=== PATIENT | female | born 1965 | race Asian ===

== ENCOUNTER → 2017-09-03 16:38 | Outpatient (CLI) | payer OTHER, SELFPAY | PROVIDERS: Family Provider Internal Medicine; PCP Family Medicine; Visit Provider Family Medicine | DX: J02.9 Acute pharyngitis, unspecified (principal) | CPT/HCPCS: 87070 ==

== ENCOUNTER 2019-11-17 14:25 | Emergency (ER) | payer OTHER, SELFPAY ==
[2019-11-17] VITALS (7 sets, daily range): BP systolic 158–235; BP diastolic 86–115; PULSE 72–80; RESP 13–22; TEMP 37; O2SAT 99–100; BMI 22.3
[2019-11-17 15:14] LABS: Hematocrit 44.2 % (36-46); Hemoglobin 15.1 g/dL (12.0-16.0); Mean Corpuscular HGB Conc 34.3 % (30-36); Mean Corpuscular Hemoglobin 30.6 PG (26-34); Mean Corpuscular Volume 89.2 fL (80-100); Platelet Count 391 X10^3/uL (150-400); Red Blood Cell Count 4.95 X10^6/uL (4.0-5.2); Red Cell Distribution Width 12.6 % (11.6-14.8); White Blood Cell Count 8.9 X10^3/uL (4.5-11.0)
[2019-11-17 15:28] LABS: Add Manual Diff / Slide Review YES
[2019-11-17] MEDS: METOCLOPRAMIDE 10 MG/2 ML INJ IV (15:33)
[2019-11-17] MEDS: KETOROLAC 60 MG/2 ML VIAL 30 MG IV (15:33)
[2019-11-17] MEDS: diphenhydrAMINE 50 MG/ML VIAL 25 MG IV (15:33)
[2019-11-17 15:36] LABS: Alanine Aminotransferase 30 IU/L (<35); Albumin 4.8 g/dL (3.5-5.0); Alkaline Phosphatase 63 U/L (38-126); Aspartate Aminotransferase 35 IU/L (14-36); BUN Creatinine Ratio 15.9 (6-22); Bilirubin Total 0.3 mg/dL (0.2-1.3); Blood Urea Nitrogen 11 mg/dL (7-17); Calcium 10.2 mg/dL (8.4-10.2); Carbon Dioxide 30 mmol/L (22-32); Chloride 98 mmol/L (98-107); Estimated Glomerular Filt Rate > 60.0 mL/min (>60); Globulin 4.6 g/dL (1.7-4.1); Glucose 146 mg/dL (70-100); HEMOLYSIS < 15 (0-50); Potassium 3.4 mmol/L (3.4-5.1); Sodium 138 mmol/L (137-145); Total Protein 9.4 g/dL (6.3-8.2)
[2019-11-17 15:37] LABS: Creatine Kinase 59 U/L (30-135)
[2019-11-17] MEDS: SODIUM CHLORIDE 0.9% 1,000 ML 150 ML IV (15:43)
[2019-11-17 15:44] LABS: Troponin I < 0.012 ng/mL (0.01-0.034)
[2019-11-17 15:51] LABS: Neutrophils Absolute Manual 4806 /uL (3000-5900); RBC Morphology Normal Morphology; Total Cells Counted 100
[2019-11-17] MEDS: LABETALOL 20 MG/4 ML SYRINGE 10 MG IV (16:00)
--- NOTE | 2019-11-17 16:07 | ED.GENADULT ---
HPI - General Adult <SOLEDAD Palmer - Last Filed: 11/17/19 19:46> General Chief complaint: Hypertension Stated complaint: headache, nausea, elevated BP Time Seen by Provider: 11/17/19 14:41 Source: patient Mode of arrival: Ambulatory Limitations: no limitations History of Present Illness HPI narrative: 54yo female presents with a history of psoriatic arthritis and HTN, currently taking Humira and intermittent hydrochlorothiazide presents to the emergency department for elevated blood pressure, nausea, and headache. Patient states usually blood pressure is elevated around the start of menstruation, which she reports started today. Patient states she took her blood pressure medication this morning but noticed she continued to have a headache that was quite severe in the frontal and bilateral temporal regions. Patient states the headache started gradually and has been increasing in severity. She reports episodes of blurry vision and difficulty focusing with photophobia. Patient denies any double vision, vision loss, chest pain, shortness of breath, dizziness, vomiting, abdominal pain, or diarrhea. She states she does have a history of headache they have not been this severe. Discussed CT with patient initially to rule out intracranial etiology. However, patient requested to try medication 1st prior to CT. Related Data Home Medications Medication Instructions Recorded Confirmed adalimumab [Humira] 40 mg MR #0 12/15/10 11/18/19 Previous Rx's Medication Instructions Recorded tacrolimus [Protopic] 1 bjorn TOPICAL BID #30 gm 01/29/17 chlorthalidone 25 mg tablet 25 mg PO DAILY #30 tab 06/21/18 norgestimate-ethinyl estradiol 1 tab PO Q DAY #3 pac 04/18/19 metoprolol succinate 25 mg 25 mg PO DAILY #30 tab 11/18/19 tablet,extended release 24 hr Allergies Allergy/AdvReac Type Severity Reaction Status Date / Time isoniazid Allergy Severe Hives Verified 11/18/19 15:58 vancomycin Allergy Intermediate Verified 11/18/19 15:58 Review of Systems <SOLEDAD Palmer - Last Filed: 11/17/19 19:46> Review of Systems Narrative: REVIEW OF SYSTEMS: GENERAL: Denies fever or chills. HENT: No head trauma. Reports headaches, see HPI. EYES: No loss of vision, double vision. Reports photophobia and intermittent blurred vision, see HPI. CARDIOVASCULAR: No chest pain. RESPIRATORY: No shortness of breath or cough. GASTROINTESTINAL: No vomiting. Reports nausea, see HPI. INTEGUMENTARY: No rash. NEURO: No numbness or tingling. Patient History <SOLEDAD Palmer - Last Filed: 11/17/19 19:46> Medical History 2 para 2 (Resolved) Normal Papanicolaou smear (Resolved) Psoriasis (Chronic 1991) Psoriatic arthritis (Chronic 1996) Surgical History Anesthesia (Resolved) Status post delivery (Resolved 12/27/03) Family History Brother Hypertension Sister Uterine cancer Father Lung cancer Mother No problems noted. Social History Smoking Status: Never smoker Smoking Status: Never smoker alcohol intake frequency: holidays/special occasions only Substance Use Type: does not use Exam <SOLEDAD Palmer - Last Filed: 11/17/19 19:46> Initial Vital Signs Initial Vital Signs: Vital Signs Temperature 98.6 F 11/17/19 14:43 Pulse Rate 80 11/17/19 14:43 Respiratory Rate 13 11/17/19 14:43 Blood Pressure 235/108 H 11/17/19 14:43 Pulse Oximetry 100 11/17/19 14:43 PHYSICAL EXAMINATION: GENERAL: Well groomed, alert, and cooperative. Answers questions promptly and appropriately. Vital signs noted. HENT: Normocephalic, atraumatic. Ear canals patent. Oral mucosa is pink and moist. EYES: PERRLA, EOMI, conjunctiva pink, sclera white, no periorbital swelling. CHEST: Normal to inspection and without deformities. CARDIOVASCULAR: S1 and S2 sounds normal. Regular rate and rhythm, no murmurs, clicks, or bruits. RESPIRATORY: Normal respiratory rate, trachea midline, airway patent. No stridor, nasal flaring or accessory muscle use. Lungs are clear in all lawrence without wheeze, rhonchi, or crackles. GASTROINTESTINAL: Bowel sounds normoactive. Abdomen is soft and non-tender. No organomegaly. MUSCULOSKELETAL: Normal gait and coordination. Equal tone and mass bilaterally. EXTREMITIES: CMS intact. Moves all extremities. SKIN: Warm, dry, soft, appropriate color for ethnicity. No lesions, rashes, or wounds. NEURO: Alert and Oriented X 3. Good coordination. No ataxia, or sensory deficits, or cognitive issues. Cranial Nerves: II: Visual lawrence grossly intact. III & IV & : EOMIs V: Able to open and close jaw. VII: Facial movements symetrical. Able to close eyelids tightly. VIII: Hearing grossly intact, adequate balance. XI: Patient is able to shrug shoulders. XII: Patient is able to stick out tongue and move it side to side. PSYCH: Appropriate affect and mood. <Gordo Bedoya MD - Last Filed: 11/19/19 07:54> Initial Vital Signs Initial Vital Signs: Vital Signs Temperature 98.6 F 11/17/19 14:43 Pulse Rate 80 11/17/19 14:43 Respiratory Rate 13 11/17/19 14:43 Blood Pressure 235/108 H 11/17/19 14:43 Pulse Oximetry 100 11/17/19 14:43 Course <SOLEDAD Palmer - Last Filed: 11/17/19 19:46> Orders Ordered: Discontinued Medications Diphenhydramine HCl (Benadryl) 25 mg IV NOW ONE Stop: 11/17/19 15:08 Last Admin: 11/17/19 15:33 Dose: 25 mg Documented by: SAÚL Sodium Chloride (Normal Saline 0.9%) 1,000 mls @ 150 mls/hr IV CONT TIMOTHY Last Admin: 11/17/19 15:43 Dose: 150 mls/hr Documented by: SAÚL Ketorolac Tromethamine (Toradol) 30 mg IV NOW ONE Stop: 11/17/19 15:08 Last Admin: 11/17/19 15:45 Dose: Not Given Documented by: SAÚL Labetalol HCl (Trandate) 10 mg IV NOW ONE Stop: 11/17/19 15:57 Last Admin: 11/17/19 16:00 Dose: 10 mg Documented by: SAÚL Labetalol HCl (Trandate) 100 mg PO NOW ONE Stop: 11/17/19 16:44 Last Admin: 11/17/19 17:16 Dose: 100 mg Documented by: SAÚL Metoclopramide HCl (Reglan) 10 mg IV NOW ONE Stop: 11/17/19 15:08 Last Admin: 11/17/19 15:33 Dose: 10 mg Documented by: SAÚL Reevaluation(s) Reevaluation #1: Evaluation after migraine medication, blood pressure remains elevated and headache remains the same. Denied Toradol this time. 1642: Further evaluation after labetalol, blood pressure was seen to be 150s systolic, reported decreased headache. Patient continued to decline Toradol as she states her pain is feeling better. Discussed giving patient a pill of labetalol to help stabilize blood pressure. Patient agrees to plan of care. Consultations Consultation #1: Patient staffed with Dr. Bedoya discussed blood pressure, symptoms, tests, test results, plan of care. Vital Signs Vital signs: Vital Signs - 8 hr 11/17/19 14:43 11/17/19 14:46 11/17/19 15:00 Temperature 98.6 F Pulse Rate 80 80 79 Respiratory Rate 13 21 22 Blood Pressure 235/108 H 235/108 H 204/115 H Pulse Oximetry 100 100 99 11/17/19 16:00 11/17/19 17:16 11/17/19 17:18 Temperature Pulse Rate 79 72 75 Respiratory Rate Blood Pressure 180/100 H 158/87 H 158/87 H Pulse Oximetry 11/17/19 18:24 Temperature Pulse Rate 75 Respiratory Rate 14 Blood Pressure 173/86 H Pulse Oximetry 99 <Gordo Bedoya MD - Last Filed: 11/19/19 07:54> Orders Ordered: Discontinued Medications Diphenhydramine HCl (Benadryl) 25 mg IV NOW ONE Stop: 11/17/19 15:08 Last Admin: 11/17/19 15:33 Dose: 25 mg Documented by: SAÚL Sodium Chloride (Normal Saline 0.9%) 1,000 mls @ 150 mls/hr IV CONT TIMOTHY Last Admin: 11/17/19 15:43 Dose: 150 mls/hr Documented by: SAÚL Ketorolac Tromethamine (Toradol) 30 mg IV NOW ONE Stop: 11/17/19 15:08 Last Admin: 11/17/19 15:45 Dose: Not Given Documented by: SAÚL Labetalol HCl (Trandate) 10 mg IV NOW ONE Stop: 11/17/19 15:57 Last Admin: 11/17/19 16:00 Dose: 10 mg Documented by: SAÚL Labetalol HCl (Trandate) 100 mg PO NOW ONE Stop: 11/17/19 16:44 Last Admin: 11/17/19 17:16 Dose: 100 mg Documented by: SAÚL Metoclopramide HCl (Reglan) 10 mg IV NOW ONE Stop: 11/17/19 15:08 Last Admin: 11/17/19 15:33 Dose: 10 mg Documented by: SAÚL Vital Signs Vital signs: Vital Signs - 8 hr 11/17/19 14:43 11/17/19 14:46 11/17/19 15:00 Temperature 98.6 F Pulse Rate 80 80 79 Respiratory Rate 13 21 22 Blood Pressure 235/108 H 235/108 H 204/115 H Pulse Oximetry 100 100 99 11/17/19 16:00 11/17/19 17:16 11/17/19 17:18 Temperature Pulse Rate 79 72 75 Respiratory Rate Blood Pressure 180/100 H 158/87 H 158/87 H Pulse Oximetry 11/17/19 18:24 Temperature Pulse Rate 75 Respiratory Rate 14 Blood Pressure 173/86 H Pulse Oximetry 99 Medical Decision Making <SOLEDAD Palmer - Last Filed: 11/17/19 19:46> Medical Records Medical records reviewed: Yes I reviewed the patient's medical records. Lab Data Lab results reviewed: Yes I reviewed the patient's lab results. Result diagrams: 11/17/19 15:07 11/17/19 15:07 Labs: Lab Results 11/17/19 11/17/19 11/17/19 Range/Units 15:07 15:07 15:07 WBC 8.9 (4.5-11.0) X10^3/uL RBC 4.95 (4.0-5.2) X10^6/uL Hgb 15.1 (12.0-16.0) g/dL Hct 44.2 (36-46) % MCV 89.2 (80-100) fL MCH 30.6 (26-34) PG MCHC 34.3 (30-36) % RDW 12.6 (11.6-14.8) % Plt Count 391 (150-400) X10^3/uL Neut % (Auto) Screen Printing Cloth Spreader Lymph % (Auto) Screen Printing Cloth Spreader Villalba % (Auto) Screen Printing Cloth Spreader Eos % (Auto) Screen Printing Cloth Spreader Baso % (Auto) Screen Printing Cloth Spreader Neut # (Auto) Screen Printing Cloth Spreader Lymph # (Auto) Screen Printing Cloth Spreader [place]alba # (Auto) Screen Printing Cloth Spreader Eos # (Auto) Screen Printing Cloth Spreader Baso # (Auto) Screen Printing Cloth Spreader Total Counted 100 Seg Neutrophils % 54.0 (38-70) % Lymphocytes % (Manual) 39.0 (25-45) % Monocytes % (Manual) 6.0 (2-11) % Eosinophils % (Manual) 1.0 L (2-4) % Neutrophils # (Manual) 4806 (0204-9296) /uL RBC Morphology Normal morphology Sodium 138 (137-145) mmol/L Potassium 3.4 (3.4-5.1) mmol/L Chloride 98 (98-107) mmol/L Carbon Dioxide 30 (22-32) mmol/L BUN 11 (7-17) mg/dL Creatinine 0.69 (0.52-1.04) mg/dL Estimated GFR > 60.0 (>60) mL/min BUN/Creatinine Ratio 15.9 (6-22) Glucose 146 H (70-100) mg/dL Calcium 10.2 (8.4-10.2) mg/dL Total Bilirubin 0.3 (0.2-1.3) mg/dL AST 35 (14-36) IU/L ALT 30 (<35) IU/L Alkaline Phosphatase 63 (38-126) U/L Total Creatine Kinase 59 (30-135) U/L CK-MB (CK-2) TNP CK-MB (CK-2) Rel Index TNP Troponin I < 0.012 (0.01-0.034) ng/mL Total Protein 9.4 H (6.3-8.2) g/dL Albumin 4.8 (3.5-5.0) g/dL Globulin 4.6 H (1.7-4.1) g/dL Albumin/Globulin Ratio 1.0 (1.0-2.8) ECG Data Interpretation: 1419: Sinus rhythm, rate 74, AK interval 160, QTC 421. No ST elevation or ST depression. No T-wave abnormality. MDM Narrative Medical decision making narrative: 54-year-old female presents emergency department for elevated blood pressure and a headache. No neurological deficits concerning symptoms such as seizures. Patient was initially given medications for headache which did not relieve her head pain. She was then given IV labetalol which significantly decreased her headache and blood pressure. Due to patient's response, patient was given oral labetalol to help manage blood pressure. Patient continued to decline CT scan. Symptoms decreased after medication administration which was reassuring for the absence of intercranial etiology, additionally, patient's neuro exam was intact. Patient was started on labetalol b.i.d. Return precautions given for new or worsening symptoms. She was encouraged to follow-up in the next 1-2 weeks for further evaluation. Patient agreed to plan of care verbalized understanding. <Gordo Bedoya MD - Last Filed: 11/19/19 07:54> Lab Data Labs: Lab Results 11/17/19 11/17/19 11/17/19 Range/Units 15:07 15:07 15:07 WBC 8.9 (4.5-11.0) X10^3/uL RBC 4.95 (4.0-5.2) X10^6/uL Hgb 15.1 (12.0-16.0) g/dL Hct 44.2 (36-46) % MCV 89.2 (80-100) fL MCH 30.6 (26-34) PG MCHC 34.3 (30-36) % RDW 12.6 (11.6-14.8) % Plt Count 391 (150-400) X10^3/uL Neut % (Auto) Screen Printing Cloth Spreader Lymph % (Auto) Screen Printing Cloth Spreader Villalba % (Auto) Screen Printing Cloth Spreader Eos % (Auto) Screen Printing Cloth Spreader Baso % (Auto) Screen Printing Cloth Spreader Neut # (Auto) Screen Printing Cloth Spreader Lymph # (Auto) Screen Printing Cloth Spreader Villalba # (Auto) Screen Printing Cloth Spreader Eos # (Auto) Screen Printing Cloth Spreader Baso # (Auto) Screen Printing Cloth Spreader Total Counted 100 Seg Neutrophils % 54.0 (38-70) % Lymphocytes % (Manual) 39.0 (25-45) % Monocytes % (Manual) 6.0 (2-11) % Eosinophils % (Manual) 1.0 L (2-4) % Neutrophils # (Manual) 4806 (7532-3980) /uL RBC Morphology Normal morphology Sodium 138 (137-145) mmol/L Potassium 3.4 (3.4-5.1) mmol/L Chloride 98 (98-107) mmol/L Carbon Dioxide 30 (22-32) mmol/L BUN 11 (7-17) mg/dL Creatinine 0.69 (0.52-1.04) mg/dL Estimated GFR > 60.0 (>60) mL/min BUN/Creatinine Ratio 15.9 (6-22) Glucose 146 H (70-100) mg/dL Calcium 10.2 (8.4-10.2) mg/dL Total Bilirubin 0.3 (0.2-1.3) mg/dL AST 35 (14-36) IU/L ALT 30 (<35) IU/L Alkaline Phosphatase 63 (38-126) U/L Total Creatine Kinase 59 (30-135) U/L CK-MB (CK-2) TNP CK-MB (CK-2) Rel Index TNP Troponin I < 0.012 (0.01-0.034) ng/mL Total Protein 9.4 H (6.3-8.2) g/dL Albumin 4.8 (3.5-5.0) g/dL Globulin 4.6 H (1.7-4.1) g/dL Albumin/Globulin Ratio 1.0 (1.0-2.8) Discharge Plan Departure Patient Disposition: Home Clinical Impression: Hypertensive urgency Discharge Date/Time: 11/17/19 18:27 Instructions: DI for High Blood Pressure Activity Restrictions/Additional Instructions: Thank you for entrusting me with your care today. As discussed, your laboratory work is non-remarkable, including your kidney function and cardiac enzymes which were normal. Your blood pressure was quite elevated today, you were given labetalol. You were also given Reglan and Benadryl in the emergency department for your headache. I have sent you home with a prescription for labetalol, please take this as directed. I suggest following up with your primary care provider next 1-2 for further evaluation and management of your blood pressure. Continue to monitor and measure blood pressure daily and keep a record. Return emergency department for any new or worsening symptoms such as double vision, vision loss, severe headache, chest pain, uncontrollable vomiting, high fevers, or any other concerns. Prescriptions: No Action adalimumab [Humira] 40 MG/0.8 ML syringe kit 40 mg MR Qty: 0 RF: 0 tacrolimus [Protopic] 0.1 % ointment 1 bjorn Topical BID Qty: 30 RF: 0 norgestimate-ethinyl estradiol [Tri-Linyah] 0.18/0.215/0.25 mg-35 mcg (28) tablet 1 tab PO Q DAY Qty: 3 RF: 4 chlorthalidone 25 mg tablet 25 mg PO DAILY Qty: 30 RF: 1 metoprolol succinate 25 mg tablet extended release 24 hr 25 mg PO DAILY Qty: 30 RF: 1 Referrals: Joya Elliott DO [Primary Care Provider] - <Gordo Bedoya MD - Last Filed: 11/19/19 07:54> Cosign ED Attending Cosignature Attestation: I was immediately available in the department for consultation. This documentation has been reviewed and I agree with assessment and plan. Supervised by Gordo Bedoya MD
[2019-11-17] MEDS: LABETALOL 100 MG TABLET PO (17:16)
== END 2019-11-17 18:27 | disposition home or self-care (01) ==
PROVIDERS: Emergency Provider Nurse Practitioner; Family Provider Internal Medicine; PCP Family Medicine
DX: I16.0 Hypertensive urgency (principal); R51 Headache; R11.0 Nausea; Z79.899 Other long term (current) drug therapy
CPT/HCPCS: 36415; 80053; 82550; 84484; 85025; 93005; 96374; 96375; 99284; J1200; J1885; J2765

== ENCOUNTER → 2019-12-17 07:58 | Outpatient (CLI) | payer OTHER, SELFPAY ==
[2019-12-17 09:24] LABS: BUN Creatinine Ratio 21.9 (6-22); Blood Urea Nitrogen 14 mg/dL (7-17); Carbon Dioxide 30 mmol/L (22-32); Chloride 103 mmol/L (98-107); Cholesterol 147 mg/dL (140-199); Estimated Glomerular Filt Rate > 60.0 mL/min (>60); Glucose 92 mg/dL (70-100); HDL Cholesterol 67 mg/dL (40-60); HEMOLYSIS < 15 (0-50); LDL Cholesterol Calculated 56 mg/dL (<100); Potassium 4.3 mmol/L (3.4-5.1); Sodium 138 mmol/L (137-145); Triglycerides 121 mg/dL (35-150)
== END ==
PROVIDERS: Family Provider Internal Medicine; PCP Family Medicine; Referring Provider Family Medicine; Visit Provider Family Medicine
DX: I10 Essential (primary) hypertension (principal); L40.50 Arthropathic psoriasis, unspecified; N95.1 Menopausal and female climacteric states
CPT/HCPCS: 36415; 80048; 80061; 83001

== ENCOUNTER → 2020-03-20 13:13 | Outpatient (CLI) | payer OTHER, SELFPAY ==
[2020-03-20 13:58] LABS: COVID19 -Nasal RAPID Negative (Negative)
[2020-03-20 14:26] LABS: Influenza A - CEPHEID Flu A NEGATIVE (NEGATIVE); Influenza B - CEPHEID Flu B NEGATIVE (NEGATIVE)
== END ==
PROVIDERS: Family Provider Internal Medicine; PCP Family Medicine; Visit Provider Registered Nurse
DX: R10.9 Unspecified abdominal pain (principal); R50.9 Fever, unspecified; R51.9 Headache, unspecified
CPT/HCPCS: 87502; 87635

== ENCOUNTER → 2020-04-14 10:41 | Outpatient (CLI) | payer OTHER, SELFPAY ==
--- NOTE | 2020-04-14 10:42 | DI.MG.S_ITS ---
BILATERAL DIGITAL SCREENING MAMMOGRAM 3D/2D WITH CAD: 04/14/2020 CLINICAL: Routine screening. Comparison is made to exams dated: 07/17/2016 mammogram and 06/03/2010 mammogram - [facility]. The tissue of both breasts is heterogeneously dense. This may lower the sensitivity of mammography. Current study was also evaluated with a Computer Aided Detection (CAD) system. No significant masses, calcifications, or other findings are seen in either breast. There has been no significant interval change. IMPRESSION: NEGATIVE There is no mammographic evidence of malignancy. A 1 year screening mammogram is recommended. This exam was interpreted at Station ID: [id number]. NOTE: For mammograms, a report in lay terms will be sent to the patient. Approximately 15% of breast malignancies will not be visualized mammographically. In the management of a palpable breast mass, a negative mammogram must not discourage biopsy of a clinically suspicious lesion. Electronically Signed By: Toby prasad/umm:04/16/2020 08:54:15 letter sent: Normal Exam ACR BI-RADS Category 1: Negative [id number]
== END ==
PROVIDERS: Family Provider Internal Medicine; PCP Family Medicine; Referring Provider Family Medicine; Visit Provider Family Medicine
DX: Z12.31 Encounter for screening mammogram for malignant neoplasm of breast (principal)
CPT/HCPCS: 77063; 77067

== ENCOUNTER → 2020-11-16 11:10 | Outpatient (CLI) | payer OTHER, SELFPAY ==
--- NOTE | 2020-11-16 11:10 | DI.US.S_ITS ---
PROCEDURE: US PELVIC COMPLETE INDICATIONS: ABNORMAL BLEEDING TECHNIQUE: Real-time scanning was performed of the pelvic organs, with image documentation. Additional endovaginal scanning was necessary due to incomplete visualization of the adnexal and endometrial structures by transabdominal scanning. COMPARISON: None. FINDINGS: Uterus: Uterus is normal in size at 6.2 x 5.2 x 4.8 cm. The endometrium measures 2 mm in combined thickness. Multiple small uterine fibroids are seen as listed below: An anterior midline intramural and subserosal fibroid measures 2.4 x 1.7 x 2 cm. A right anterior intramural and subserosal fibroid measures 2.1 x 1.8 x 2 cm. An anterior midline intramural and partially submucosal fibroid measures 1.4 x 1.4 x 1.4 cm. Ovaries: The right ovary measures 3.3 x 1.2 x 1.9 cm. The left ovary measures 2.1 x 1.1 x 1.2 cm. A 2.0 x 0.8 x 0.8 cm cystic lesion is seen in the right adnexa separate from the right ovary. Other: No pathologic free abdominal or pelvic fluid. IMPRESSION: 1. Several small uterine fibroids are seen, including a 1.4 cm partially submucosal fibroid. 2. No endometrial thickening. The endometrium measures 2 mm in thickness. 3. A right adnexal cyst measures 2.0 x 0.8 x 0.8 cm. Dictated by: Toby Wing M.D. on 11/16/2020 at 16:01 Approved by: Toby Wing M.D. on 11/16/2020 at 16:14
== END ==
PROVIDERS: Family Provider Internal Medicine; PCP Family Medicine; Referring Provider Family Medicine; Visit Provider Family Medicine
DX: N94.89 Other specified conditions associated with female genital organs and menstrual cycle (principal); D25.0 Submucous leiomyoma of uterus; D25.1 Intramural leiomyoma of uterus; D25.2 Subserosal leiomyoma of uterus
CPT/HCPCS: 76830; 76856

== ENCOUNTER 2021-06-10 07:06 | Day surgery (SDC) | payer OTHER, SELFPAY ==
--- NOTE | 2021-06-10 | PATH_ITS ---
[facility] Accession Number: [id number] . 01 Material submitted: . colon - ASCENDING COLON POLYP . 02 Diagnosis: Ascending Colon Polyp: Tubular adenoma. MRV 06/12/2021 1030 Local . 02 Electronically signed: . Nina Fitzpatrick MD, Pathologist NPI- [id number] . 01 Gross description: . ASCENDING COLON POLYP: Received in formalin is 1 fragment(s) of diaz, soft tissue measuring 0.3 x 0.3 x 0.3 cm submitted entirely in 1 cassette(s) /TIMI 06/11/2021 2248 Local . 02 Pathologist provided ICD-10: K63.5, Z12.11 . 02 CPT . 911656 Specimen Comment: A courtesy copy of this report has been sent to [phone] Specimen Comment: 2055 Performed at: 01 [facility] [address], [place], [place] [id number] MD Ernie Brown MD Phone: [phone] Performed at: 02 [facility] [address] [place], [place] [id number] MD Mae Giraldo MD Phone: [phone]
[2021-06-10 07:35] VITALS: BP 129/78; PULSE 75; RESP 16; TEMP 36.8; O2SAT 99; BMI 23.1
[2021-06-10 07:49] LABS: COVID19 -Nasal RAPID Negative (Negative)
[2021-06-10] MEDS: LACTATED RINGERS 1,000 ML 42 ML IV (07:59)
--- NOTE | 2021-06-10 08:39 | PM.HP.1 ---
History of Present Illness History of Present Illness Date Patient Seen: 06/10/21 Time Patient Seen: 08:39 Chief complaint: SDC Narrative: Indicated for asymptomatic colon cancer screening. Patient History Medical History 2 para 2 Normal Papanicolaou smear Psoriasis (1991) Psoriatic arthritis (1996) Surgical History Anesthesia Status post delivery (12/27/03) Family & Social History Family History Brother Hypertension Sister Uterine cancer Father Lung cancer Mother No problems noted. Social History: household members spouse Tobacco & Substance use: Smoking Status Never smoker alcohol intake frequency holiday/special occasion Substance Use Type does not use Meds Home Medications and Allergies Home Medications Medication Instructions Recorded Confirmed Type adalimumab 40 mg/0.8 mL 40 mg MR #0 12/15/10 05/20/21 History subcutaneous syringe kit (Humira) chlorthalidone 25 mg tablet 25 mg PO DAILY PRN #90 tab 05/20/21 05/20/21 Rx metoprolol succinate 25 mg 12.5 mg PO DAILY #90 tab 05/20/21 06/10/21 Rx tablet,extended release 24 hr Allergies Allergy/AdvReac Type Severity Reaction Status Date / Time isoniazid Allergy Severe Hives Verified 06/10/21 07:17 vancomycin Allergy Intermediate Verified 06/10/21 07:17 Review of Systems Review of Systems ROS: Yes All systems reviewed with the patient and are negative except as otherwise documented Exam Vital Signs (past 8 hours): - 06/10/21 07:35 Temperature 98.2 F Pulse Rate 75 Respiratory Rate 16 Blood Pressure 129/78 Pulse Oximetry 99 Oxygen Delivery Method Room Air Const General: cooperative and comfortable Orientation: alert HENMT Head: normocephalic Ears: external ears normal Nose: external nose normal Face and sinus: normal facial exam Mouth: oral mucosae normal Eyes General: appearance normal, both eyes and all related structures Neck Neck: normal visual inspection Chest Chest: normal inspection of the chest Resp Effort & Inspection: normal respiratory effort Cardio Rate: regular rate GI Inspection: normal to inspection Skin General: no rashes or lesions noted and No jaundice Neuro General: patient alert and moves all extremities Cognition: normal cognition Speech: speech normal Extrem General: no pedal edema Psych Appearance: grossly normal Objective Labs Labs: Laboratory Results - last 24 hr 06/10/21 07:33 SARS-CoV-2 (PCR) Negative Assessment & Plan Assessment & Plan narrative: 55-year-old female indicated for colon cancer screening. Colonoscopy is planned for today. Time Spent With Patient Critical Care time: I spent a total of [] minutes of critical care time on this patient's care today; this time is exclusive of procedural time.
--- NOTE | 2021-06-10 08:40 | PM.PREOP ---
Pre-operative Note COVID-19 COVID-19 status: Negative Result date/Date tested (Pos, Neg/Pending): 06/10/21 Criteria for continued procedure: Possibility delay results in more complex future surgery or treatment Interval Note History & Physical reviewed/Exam performed by Physician: Yes Changes to H&P: No ASA Class (for procedural sedation): II
--- NOTE | 2021-06-10 09:38 | PM.OP.COLON ---
Operative Date/Time/Diagnoses Date of procedure: 06/10/21 Time of procedure: 09:38 Pre-op diagnosis: Colon cancer screening Post-op diagnosis: same Procedure & Clinicians Study performed: Colonoscopy with cold snare polypectomy Same procedure as scheduled: Yes Indications: Colon cancer screening Surgeon: Nghia Whittington Procedure Notes SCOAP/Timeout: Done Procedure in detail: After the risks and benefits were explained, written and verbal informed consent was obtained. The patient was brought into the procedure room and placed into the left lateral decubitus position. Please see nurse inventory control analyst notes for sedation details. Digital rectal examination was accomplished. The scope was introduced into the patient and advanced under direct visualization to the cecum as identified by the appendiceal orifice and ileocecal valve. The scope was slowly withdrawn to carefully examine the mucosa for any defects or lesions. Comprehensive imaging was accomplished throughout the rectum including the dentate line. The colon was decompressed, the scope was then removed from the patient who tolerated the procedure well. Bowel prep adequate Pediatric colonoscope Scope withdrawal time: 10 minutes Sedation minutes: 23 Complications: none Impression: Patient had a fairly lengthy slightly redundant colon. There was a 7 mm sessile polyp near the ileocecal valve in the ascending colon removed with cold snare (we initially had the cautery pad for a hot application but the snare came through the polyp prior to any cautery). There was no sustained significant bleeding. No additional pathology was appreciated throughout. Mild internal hemorrhoids grade 1. Endoscopic diagnosis 1. Grade 1 hemorrhoids 2. Colon polyp Post-procedure Plan for aftercare: 1. Await histopathology 2. Repeat colonoscopy will likely be suggested for 7 years. Disposition: PACU
[2021-06-10 09:40] VITALS: BP 99/65; PULSE 69; RESP 17; TEMP 36.5; O2SAT 100
[2021-06-10 09:45] VITALS: BP 95/64; PULSE 69; RESP 18; O2SAT 98
[2021-06-10 09:50] VITALS: BP 105/62; PULSE 70; RESP 20; O2SAT 99
[2021-06-10 09:55] VITALS: BP 124/74; PULSE 69; RESP 13; TEMP 36.5; O2SAT 100
== END 2021-06-10 10:15 | disposition home or self-care (01) ==
PROVIDERS: Family Provider Internal Medicine; PCP Family Medicine; Referring Provider Internal Medicine Gastroenterology; Visit Provider Internal Medicine Gastroenterology
PROC: 0DJD8ZZ Inspection of Lower Intestinal Tract, Via Natural or Artificial Opening Endoscopic (ICD-10-PCS; CPT 45378; principal; 2021-06-10 09:00)
DX: Z12.11 Encounter for screening for malignant neoplasm of colon (principal); Z20.822 Contact with and (suspected) exposure to COVID-19; K64.0 First degree hemorrhoids; D12.2 Benign neoplasm of ascending colon
CPT/HCPCS: 45385; 87635; C9803

== ENCOUNTER → 2022-02-28 12:38 | Outpatient (CLI) | payer OTHER, SELFPAY ==
[2022-02-28 14:28] LABS: Add Manual Diff / Slide Review NO; Basophils Absolute Auto 100 /uL (0-100); Basophils Percent Auto 0.7 % (0-2); Eosinophils Absolute Auto 0 /uL (0-450); Eosinophils Percent Auto 0.5 % (2-4); Hematocrit 41.4 % (36-46); Lymphocytes Absolute Auto 3300 /uL (1100-4500); Lymphocytes Percent Auto 40.2 % (25-40); Mean Corpuscular HGB Conc 33.7 % (30-36); Mean Corpuscular Hemoglobin 29.6 PG (26-34); Mean Corpuscular Volume 87.8 fL (80-100); Monocytes Absolute Auto 300 /uL (0-900); Monocytes Percent Auto 3.8 % (3-14); Neutrophils Absolute Auto 4500 /uL (1500-7000); Neutrophils Percent Auto 54.8 % (50-75); Platelet Count 394 X10^3/uL (150-400); Red Blood Cell Count 4.72 X10^6/uL (4.0-5.2); Red Cell Distribution Width 12.7 % (11.6-14.8); White Blood Cell Count 8.3 X10^3/uL (4.5-11.0)
[2022-02-28 15:39] LABS: Alanine Aminotransferase 32 IU/L (<35); Albumin 4.3 g/dL (3.5-5.0); Albumin Globulin Ratio 1.1 (1.0-2.8); Alkaline Phosphatase 65 U/L (38-126); Aspartate Aminotransferase 26 IU/L (14-36); BUN Creatinine Ratio 19.3 (6-22); Bilirubin Total 0.4 mg/dL (0.2-1.3); Blood Urea Nitrogen 17 mg/dL (7-17); C-Reactive Protein Quant 0.7 mg/dL (<1.0); Calcium 9.5 mg/dL (8.4-10.2); Carbon Dioxide 34 mmol/L (22-32); Chloride 96 mmol/L (98-107); Estimated Glomerular Filt Rate > 60 mL/min (>60); Glucose 162 mg/dL (70-100); HEMOLYSIS < 15 (0-50); Potassium 3.2 mmol/L (3.4-5.1); Sodium 140 mmol/L (137-145); Total Protein 8.3 g/dL (6.3-8.2)
[2022-02-28 16:11] LABS: Rheumatoid Factor < 8.6 IU/mL (<12.0)
[2022-02-28 16:21] LABS: Erythrocyte Sedimentation Rate 39 MM/HR (0-20)
[2022-03-01 07:56] LABS: Complement C3 122 mg/dL (82-167); HBsAg Screen Negative (Negative); Hepatitis A Antibody IgM Negative (Negative); Hepatitis B Core AB w/Reflex Negative (Negative); Hepatitis B Core AB, IgM Negative (Negative); Hepatitis C Antibody 0.1 s/co ratio (0.0-0.9)
[2022-03-01 20:02] LABS: Hepatitis B Surface Antigen NEGATIVE s/c (NEGATIVE)
[2022-03-01 20:21] LABS: HIV 1 & 2 Ab/Ag 4th Gen Combo NEGATIVE (NEGATIVE); Hep C Virus Ab w/Reflex Quant NEGATIVE s/c (NEGATIVE)
[2022-03-03 14:49] LABS: Hepatitis B Surf Ab Qualitativ Reactive (.)
[2022-03-04 02:43] LABS: Complement Total CH50 > 60 U/mL (>41)
[2022-03-04 13:17] LABS: Cytoplasmic C-ANCA <1:20 titer (Neg:<1:20); Perinuclear P-ANCA <1:20 titer (Neg:<1:20)
[2022-03-04 17:11] LABS: ANA Screen, IFA Positive (.)
[2022-04-08 13:05] LABS: Hepatitis B Core Antibody IgM Negative
== END ==
PROVIDERS: Family Provider Internal Medicine; PCP Family Medicine; Referring Provider Dermatology; Visit Provider Dermatology
DX: L95.9 Vasculitis limited to the skin, unspecified (principal)
CPT/HCPCS: 36415; 80053; 80074; 82595; 85025; 85651; 86038; 86140; 86160; 86162; 86256; 86430; 86704; 86706; 86803; 87340; 87389

== ENCOUNTER → 2022-04-21 08:00 | Outpatient (CLI) | payer OTHER, SELFPAY ==
--- NOTE | 2022-04-21 | DI.MG.S_ITS ---
BILATERAL DIGITAL SCREENING MAMMOGRAM 3D/2D WITH CAD: 04/21/2022 CLINICAL: Routine screening. Comparison is made to exams dated: 04/14/2020 mammogram, 07/17/2016 mammogram, and 06/03/2010 mammogram - [facility]. Both breasts are heterogeneously dense, which may obscure small masses (category c / 51-75% glandular tissue). Current study was also evaluated with a Computer Aided Detection (CAD) system. No significant masses, calcifications, or other findings are seen in either breast. There has been no significant interval change. IMPRESSION: NEGATIVE There is no mammographic evidence of malignancy. A 1 year screening mammogram is recommended. Based on the Tyrer Cuzick model (a risk assessment model) the patient's lifetime risk is 11.6% and her 10 year risk is 3.8%. According to the ACR, ACS, and NCCN guidelines, an annual breast MRI exam along with mammogram is recommended if the patient's lifetime risk is 20% or greater. This exam was interpreted at Station ID: [id number]. NOTE: For mammograms, a report in lay terms will be sent to the patient. Approximately 15% of breast malignancies will not be visualized mammographically. In the management of a palpable breast mass, a negative mammogram must not discourage biopsy of a clinically suspicious lesion. Electronically Signed By: Vickie arroyo/umm:04/21/2022 14:45:16 letter sent: Normal Exam ACR BI-RADS Category 1: Negative [id number]
== END ==
PROVIDERS: Family Provider Internal Medicine; PCP Family Medicine; Referring Provider Family Medicine; Visit Provider Family Medicine
DX: Z12.31 Encounter for screening mammogram for malignant neoplasm of breast (principal)
CPT/HCPCS: 77063; 77067

== ENCOUNTER → 2022-11-10 10:16 | Outpatient (CLI) | payer OTHER, SELFPAY ==
[2022-11-10 11:33] LABS: Hemoglobin A1C% w Est Avg Glu 5.5 % (4.0-6.0)
[2022-11-10 11:44] LABS: BUN Creatinine Ratio 22.6 (6-22); Blood Urea Nitrogen 14 mg/dL (7-17); Calcium 9.9 mg/dL (8.4-10.2); Carbon Dioxide 30 mmol/L (22-32); Chloride 101 mmol/L (98-107); Cholesterol 204 mg/dL (140-199); Estimated Glomerular Filt Rate > 60 mL/min (>60); Glucose 113 mg/dL (70-100); HDL Cholesterol 73 mg/dL (40-60); HEMOLYSIS < 15 (0-50); LDL Cholesterol Calculated 89 mg/dL (<100); Potassium 4.9 mmol/L (3.4-5.1); Sodium 142 mmol/L (137-145); Triglycerides 210 mg/dL (35-150)
[2022-11-10 12:00] LABS: Vitamin D 25 Hydroxy (D3) 32.9 ng/mL (30.0-100.0)
[2022-11-10 12:25] LABS: Appearance Urine UA SL CLOUDY; Bilirubin Urine UA NEGATIVE (NEGATIVE); Color Urine UA YELLOW; Glucose Urine UA NEGATIVE (Negative); Ketones Urine UA NEGATIVE (NEGATIVE); Leukocyte Esterase Urine UA NEGATIVE (NEGATIVE); Nitrite Urine UA NEGATIVE (Negative); Occult Blood Urine UA NEGATIVE (Negative); Protein Urine UA NEGATIVE (Negative); Urobilinogen Urine UA 0.2 E.U./dL (0.2)
[2022-11-10 12:28] LABS: pH Urine UA 7.5 (4.5-8.0)
[2022-11-10 12:33] LABS: Amorphous Sediment Urine 3+; Bacteria Urine None Seen; Culture Indicated Urine Cult Not Indicated; RBC Urine 0-1/HPF (0-5/HPF); Squamous Epithelial Cell Urine None Seen (0-5/HPF); WBC Urine None Seen (0-5/HPF)
[2022-11-10 14:11] LABS: Creatinine Urine Random 62.2 mg/dL; Protein (Total) Urine Random 6 mg/dL (0-12); Protein Creatinine Ratio Urine 0.09 GRAM/24H
== END ==
PROVIDERS: Family Provider Internal Medicine; PCP Internal Medicine; Referring Provider Internal Medicine Rheumatology; Visit Provider Internal Medicine Rheumatology
DX: L40.50 Arthropathic psoriasis, unspecified (principal); L40.9 Psoriasis, unspecified; M31.0 Hypersensitivity angiitis; R76.8 Other specified abnormal immunological findings in serum; D84.9 Immunodeficiency, unspecified; I10 Essential (primary) hypertension; R73.01 Impaired fasting glucose; E55.9 Vitamin D deficiency, unspecified
CPT/HCPCS: 36415; 80048; 80061; 81001; 82306; 82570; 83036; 84156; 86038; 86225; 86235

== ENCOUNTER → 2024-02-25 07:46 | Outpatient (CLI) | payer OTHER, SELFPAY ==
--- NOTE | 2024-02-25 | DI.MG.S_ITS ---
BILATERAL DIGITAL SCREENING MAMMOGRAM 3D/2D WITH CAD: 02/25/2024 CLINICAL: Routine screening. Comparison is made to exams dated: 04/21/2022 mammogram, 04/14/2020 mammogram, and 07/17/2016 mammogram - [facility]. The breasts are heterogeneously dense, which may obscure small masses (category c / 51-75% glandular tissue). Current study was also evaluated with a Computer Aided Detection (CAD) system. No significant masses, calcifications, or other findings are seen in either breast. There has been no significant interval change. IMPRESSION: NEGATIVE There is no mammographic evidence of malignancy. A 1 year screening mammogram is recommended. Based on the Tyrer Cuzick model (a risk assessment model) the patient's lifetime risk is 13.6% and her 10 year risk is 5.0%. According to the ACR, ACS, and NCCN guidelines, an annual breast MRI exam along with mammogram is recommended if the patient's lifetime risk is 20% or greater. This exam was interpreted at Station ID: [id number]. NOTE: For mammograms, a report in lay terms will be sent to the patient. Approximately 15% of breast malignancies will not be visualized mammographically. In the management of a palpable breast mass, a negative mammogram must not discourage biopsy of a clinically suspicious lesion. Electronically Signed By: Pallavi quintero/umm:02/25/2024 09:47:55 letter sent: Normal Exam ACR BI-RADS Category 1: Negative
== END ==
PROVIDERS: Family Provider Internal Medicine; PCP Internal Medicine; Referring Provider Internal Medicine; Visit Provider Internal Medicine
DX: Z12.31 Encounter for screening mammogram for malignant neoplasm of breast (principal); R92.333 Mammographic heterogeneous density, bilateral breasts
CPT/HCPCS: 77063; 77067

== ENCOUNTER → 2024-04-28 14:47 | Outpatient (CLI) | payer OTHER, SELFPAY ==
[2024-05-02 15:15] LABS: Vitamin D 25 Hydroxy (D3) 31.3 ng/mL (30.0-100.0)
[2024-05-02 15:47] LABS: Vitamin B12 566 pg/mL (239-931)
== END ==
PROVIDERS: Family Provider Internal Medicine; PCP Internal Medicine; Visit Provider Internal Medicine
DX: E56.9 Vitamin deficiency, unspecified (principal)
CPT/HCPCS: 82306; 82607

== ENCOUNTER → 2024-05-02 10:03 | Outpatient (CLI) | payer OTHER, SELFPAY ==
[2024-05-02 10:54] LABS: Hematocrit 40.9 % (36-46); Hemoglobin 13.6 g/dL (12.0-16.0); Mean Corpuscular HGB Conc 33.3 % (30-36); Mean Corpuscular Hemoglobin 29.3 PG (26-34); Mean Corpuscular Volume 87.7 fL (80-100); Platelet Count 398 X10^3/uL (150-400); Red Blood Cell Count 4.66 X10^6/uL (4.0-5.2); Red Cell Distribution Width 12.8 % (11.6-14.8); White Blood Cell Count 9.8 X10^3/uL (4.5-11.0)
[2024-05-02 11:15] LABS: Erythrocyte Sedimentation Rate 51 MM/HR (0-20)
[2024-05-02 11:35] LABS: Alanine Aminotransferase 25 IU/L (<35); Albumin 4.3 g/dL (3.5-5.0); Albumin Globulin Ratio 1.1 (1.0-2.8); Alkaline Phosphatase 81 U/L (38-126); Aspartate Aminotransferase 27 IU/L (14-36); BUN Creatinine Ratio 20.8 (6-22); Bilirubin Total 0.4 mg/dL (0.2-1.3); Blood Urea Nitrogen 15 mg/dL (7-17); C-Reactive Protein Quant 1.6 mg/dL (<1.0); Calcium 9.9 mg/dL (8.4-10.2); Carbon Dioxide 26 mmol/L (22-32); Chloride 103 mmol/L (98-107); Creatine Kinase 95 U/L (30-135); Estimated Glomerular Filt Rate > 60 mL/min (>60); Globulin 3.8 g/dL (1.7-4.1); Glucose 114 mg/dL (70-100); HEMOLYSIS < 15 (0-50); Magnesium 1.9 mg/dL (1.6-2.3); Potassium 4.9 mmol/L (3.4-5.1); Sodium 140 mmol/L (137-145); Total Protein 8.1 g/dL (6.3-8.2)
[2024-05-02 11:58] LABS: TSH w/ Reflex to FT4 1.47 uIU/mL (0.47-4.68)
== END ==
PROVIDERS: Family Provider Internal Medicine; PCP Internal Medicine; Referring Provider Internal Medicine; Visit Provider Internal Medicine
DX: M79.10 Myalgia, unspecified site (principal); R60.0 Localized edema; L40.50 Arthropathic psoriasis, unspecified; E83.42 Hypomagnesemia; R73.01 Impaired fasting glucose
CPT/HCPCS: 36415; 80053; 82550; 83036; 83735; 84443; 85027; 85651; 86140

== ENCOUNTER → 2024-05-18 14:17 | Outpatient (CLI) | payer OTHER, SELFPAY ==
[2024-05-18 14:47] LABS: Appearance Urine UA CLEAR; Bilirubin Urine UA NEGATIVE (NEGATIVE); Color Urine UA YELLOW; Glucose Urine UA NEGATIVE (Negative); Ketones Urine UA NEGATIVE (NEGATIVE); Leukocyte Esterase Urine UA NEGATIVE (NEGATIVE); Nitrite Urine UA NEGATIVE (Negative); Occult Blood Urine UA NEGATIVE (Negative); Protein Urine UA NEGATIVE (Negative); Urobilinogen Urine UA 0.2 E.U./dL (0.2)
[2024-05-18 14:49] LABS: Urine Volume 10mL (spun)
[2024-05-18 14:50] LABS: Bacteria Urine None Seen; RBC Urine None Seen (0-5/HPF); Squamous Epithelial Cell Urine None Seen (0-5/HPF); WBC Urine None Seen (0-5/HPF)
[2024-05-18 14:51] LABS: Culture Indicated Urine Cult Not Indicated
[2024-05-18 15:41] LABS: Creatinine Urine Random 82.45 mg/dL; Protein (Total) Urine Random 10 mg/dL (0-12); Protein Creatinine Ratio Urine 0.12 GRAM/24H
[2024-05-18 16:11] LABS: C-Reactive Protein Quant 1.2 mg/dL (<1.0)
[2024-05-18 16:37] LABS: Erythrocyte Sedimentation Rate 49 MM/HR (0-20)
== END ==
LOC: LAB 14:21
PROVIDERS: Family Provider Internal Medicine; PCP Internal Medicine; Referring Provider Internal Medicine Rheumatology; Visit Provider Internal Medicine Rheumatology
DX: L40.50 Arthropathic psoriasis, unspecified (principal); M31.0 Hypersensitivity angiitis; L40.9 Psoriasis, unspecified
CPT/HCPCS: 36415; 81001; 82570; 84156; 85651; 86140

== ENCOUNTER → 2024-08-03 14:10 | Outpatient (CLI) | payer OTHER, SELFPAY ==
[2024-08-03 14:58] LABS: Add Manual Diff / Slide Review NO; Basophils Absolute Auto 100 /uL (0-100); Basophils Percent Auto 0.5 % (0-2); Eosinophils Absolute Auto 100 /uL (0-450); Hematocrit 35.6 % (36-46); Hemoglobin 12.1 g/dL (12.0-16.0); Lymphocytes Absolute Auto 2900 /uL (1100-4500); Lymphocytes Percent Auto 28.7 % (25-40); Mean Corpuscular Hemoglobin 29.4 PG (26-34); Mean Corpuscular Volume 86.4 fL (80-100); Monocytes Absolute Auto 400 /uL (0-900); Monocytes Percent Auto 4.4 % (3-14); Neutrophils Absolute Auto 6700 /uL (1500-7000); Neutrophils Percent Auto 65.4 % (50-75); Platelet Count 382 X10^3/uL (150-400); Red Blood Cell Count 4.11 X10^6/uL (4.0-5.2); Red Cell Distribution Width 12.7 % (11.6-14.8); White Blood Cell Count 10.3 X10^3/uL (4.5-11.0)
[2024-08-03 15:06] LABS: Appearance Urine UA CLEAR; Bilirubin Urine UA NEGATIVE (NEGATIVE); Color Urine UA YELLOW; Glucose Urine UA NEGATIVE (Negative); Ketones Urine UA NEGATIVE (NEGATIVE); Leukocyte Esterase Urine UA NEGATIVE (NEGATIVE); Nitrite Urine UA NEGATIVE (Negative); Occult Blood Urine UA TRACE-INTACT (Negative); Protein Urine UA NEGATIVE (Negative); Specific Gravity Urine UA 1.025 (1.000-1.035); Urobilinogen Urine UA 0.2 E.U./dL (0.2)
[2024-08-03 15:13] LABS: Erythrocyte Sedimentation Rate 73 MM/HR (0-20)
[2024-08-03 15:37] LABS: Alanine Aminotransferase 22 IU/L (<35); Albumin 4.3 g/dL (3.5-5.0); Albumin Globulin Ratio 1.1 (1.0-2.8); Alkaline Phosphatase 86 U/L (38-126); Aspartate Aminotransferase 23 IU/L (14-36); Bilirubin Total 0.5 mg/dL (0.2-1.3); Blood Urea Nitrogen 13 mg/dL (7-17); C-Reactive Protein Quant 2.8 mg/dL (<1.0); Calcium 9.4 mg/dL (8.4-10.2); Carbon Dioxide 26 mmol/L (22-32); Chloride 102 mmol/L (98-107); Creatine Kinase 44 U/L (30-135); Estimated Glomerular Filt Rate > 60 mL/min (>60); Globulin 3.8 g/dL (1.7-4.1); Glucose 165 mg/dL (70-99); HEMOLYSIS < 15 (0-50); Potassium 3.8 mmol/L (3.4-5.1); Rheumatoid Factor 9.3 IU/mL (<12.0); Sodium 138 mmol/L (137-145); Total Protein 8.1 g/dL (6.3-8.2)
[2024-08-03 15:39] LABS: Bacteria Urine None Seen; RBC Urine 1-5/HPF (0-5/HPF); Squamous Epithelial Cell Urine 0-1 /HPF (0-5/HPF); Urine Volume 10mL (spun); WBC Urine 0-1/HPF (0-5/HPF)
[2024-08-03 15:40] LABS: Culture Indicated Urine Cult Not Indicated
[2024-08-03 16:27] LABS: Creatinine Urine Random 98.86 mg/dL; Protein (Total) Urine Random 6 mg/dL (0-12); Protein Creatinine Ratio Urine 0.06 GRAM/24H
[2024-08-05 04:39] LABS: Complement C3 145 mg/dL (82-167)
[2024-08-05 05:09] LABS: Immunoglobulin A 879 mg/dL (87-352)
[2024-08-05 23:39] LABS: Complement Total CH50 > 60 U/mL (>41)
[2024-08-06 19:36] LABS: Angiotensin Converting Enzyme 42 U/L (14-82)
[2024-08-07 14:11] LABS: Antimyeloperoxidase Antibodies <0.2 units (0.0-0.9); Antiproteinase 3 Antibodies <0.2 units (0.0-0.9); Cytoplasmic C-ANCA <1:20 titer (Neg:<1:20); Perinuclear P-ANCA <1:20 titer (Neg:<1:20)
[2024-08-08 15:08] LABS: ANA Screen, IFA Positive (.)
== END ==
PROVIDERS: Family Provider Internal Medicine; PCP Internal Medicine; Referring Provider Internal Medicine Rheumatology; Visit Provider Internal Medicine Rheumatology
DX: L40.50 Arthropathic psoriasis, unspecified (principal); M31.0 Hypersensitivity angiitis
CPT/HCPCS: 36415; 80053; 81001; 82164; 82550; 82570; 82784; 84156; 85025; 85651; 86038; 86140; 86160; 86162; 86256; 86430

== ENCOUNTER → 2024-08-04 13:59 | Outpatient (CLI) | payer OTHER, SELFPAY ==
--- NOTE | 2024-08-04 13:51 | DI.RAD.S_ITS ---
PROCEDURE: XR CHEST 2V INDICATIONS: ARTRITIUS TECHNIQUE: 2 views of the chest were acquired. COMPARISON: None. FINDINGS: Surgical changes and devices: None. Lungs and pleura: Lungs are clear. No pleural effusions or pneumothorax. Mediastinum: Mediastinal contours are normal. Heart size is normal. Bones and chest wall: No suspicious bony abnormalities. Soft tissues appear unremarkable. IMPRESSION: No acute cardiopulmonary abnormality is seen. Dictated by: Gutierrez Graves M.D. on 08/04/2024 at 17:19 Approved by: Gutierrez Graves M.D. on 08/04/2024 at 17:19
== END ==
PROVIDERS: Family Provider Internal Medicine; PCP Internal Medicine; Referring Provider Internal Medicine Rheumatology; Visit Provider Internal Medicine Rheumatology
DX: L40.50 Arthropathic psoriasis, unspecified (principal); M31.0 Hypersensitivity angiitis
CPT/HCPCS: 36415; 71046

== ENCOUNTER 2024-08-24 07:29 | Emergency (ER) | payer OTHER, SELFPAY ==
[2024-08-24] VITALS (11 sets, daily range): BP systolic 134–193; BP diastolic 69–84; PULSE 77–89; RESP 15–20; TEMP 37; O2SAT 95–99; BMI 21.4
--- NOTE | 2024-08-24 07:55 | EKG_ITS ---
[address] [address] [place] [address] Test Date: 2024-08-24 Pat Name: Marguerite Perales Department: [facility] Room: Gender: Female [employer] Field Assistant: DINA : 1965 Requested By: Order Number: [id number] Reading MD: Michael Antonio Measurements Intervals [place] Rate: 81 P: 73 WY: 192 QRS: 43 QRSD: 70 T: 45 QT: 366 QTc: 425 Interpretive Statements Normal sinus rhythm Nonspecific ST abnormality Electronically Signed On 08-26-2024 0:11:25 PDT by Michael Antonio
[2024-08-24 08:07] LABS: Add Manual Diff / Slide Review NO; Basophils Absolute Auto 100 /uL (0-100); Basophils Percent Auto 0.5 % (0-2); Eosinophils Absolute Auto 0 /uL (0-450); Eosinophils Percent Auto 0.2 % (2-4); Hematocrit 41.4 % (36-46); Hemoglobin 13.7 g/dL (12.0-16.0); Lymphocytes Absolute Auto 3500 /uL (1100-4500); Lymphocytes Percent Auto 16.4 % (25-40); Mean Corpuscular Hemoglobin 28.9 PG (26-34); Mean Corpuscular Volume 87.7 fL (80-100); Monocytes Absolute Auto 1100 /uL (0-900); Monocytes Percent Auto 5.2 % (3-14); Neutrophils Absolute Auto 16600 /uL (1500-7000); Neutrophils Percent Auto 77.7 % (50-75); Platelet Count 361 X10^3/uL (150-400); Red Blood Cell Count 4.73 X10^6/uL (4.0-5.2); Red Cell Distribution Width 13.4 % (11.6-14.8); White Blood Cell Count 21.4 X10^3/uL (4.5-11.0)
[2024-08-24] MEDS: ONDANSETRON 4 MG/2 ML INJ IV (08:21)
[2024-08-24 08:23] LABS: Alanine Aminotransferase 19 IU/L (<35); Albumin 4.2 g/dL (3.5-5.0); Albumin Globulin Ratio 1.2 (1.0-2.8); Alkaline Phosphatase 84 U/L (38-126); Aspartate Aminotransferase 20 IU/L (14-36); BUN Creatinine Ratio 21.9 (6-22); Bilirubin Total 0.6 mg/dL (0.2-1.3); Blood Urea Nitrogen 16 mg/dL (7-17); Calcium 9.1 mg/dL (8.4-10.2); Carbon Dioxide 28 mmol/L (22-32); Chloride 102 mmol/L (98-107); Estimated Glomerular Filt Rate > 60 mL/min (>60); Globulin 3.5 g/dL (1.7-4.1); Glucose 166 mg/dL (70-99); HEMOLYSIS < 15 (0-50); Lipase 143 U/L (23-300); Potassium 3.5 mmol/L (3.4-5.1); Sodium 138 mmol/L (137-145); Total Protein 7.7 g/dL (6.3-8.2)
--- NOTE | 2024-08-24 08:29 | ED.ABDPAIN ---
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 Patient states developed epigastric pain about 2 days ago more in the morning had an episode of vomiting in an improved went about their day was able to eat dinner last night, this morning has not eat anything but had epigastric pain again and vomited again this morning. No fevers or chills. No chest pain or pressure. Pain does not radiate to the back or elsewhere. No shortness of breath. Bowel movements has been decreased but did have a small bowel movement that was pellet-like in the last 2 days. Has been been having flatus. No melanotic stools or hematochezia. No flank or back pain. No new swelling of extremities. No new urinary symptoms. Patient notes approximately a month ago had an upper respiratory infection which followed by rash, leg swelling and pain in the extremities was diagnosed with vasculitis suspected IgA and was put on prednisone has currently been taper. Started at 40 mg has tapered down to 20 mg, this is week 3. Patient is on Otezla. Lisinopril and currently prednisone. Past surgical history . Pathologies to INH and vancomycin. No tobacco, no alcohol, no recreational drugs. Patient follows with Dr. Lowe for Rheumatology at [facility]. Primary care is Dr. Valdovinos. Related Data Home Medications ?Medication ?Instructions ?Recorded ?Confirmed apremilast 30 mg tablet (Otezla) 30 mg PO BID Psoriatic arthritis 04/28/24 08/04/24 Previous Rx's ?Medication ?Instructions ?Recorded losartan 25 mg tablet 25 mg PO DAILY #90 tabs 04/28/24 famotidine 40 mg tablet (Pepcid) 40 mg PO BID #30 tabs 08/24/24 ondansetron 4 mg disintegrating 4 mg PO Q6H PRN nausea and 08/24/24 tablet vomiting #20 tabs sucralfate 1 gram tablet (Carafate) 1 g PO QACHS #40 tabs 08/24/24 Allergies Allergy/AdvReac Type Severity Reaction Status Date / Time isoniazid Allergy Severe Hives Verified 08/04/24 16:43 vancomycin Allergy Intermediate Verified 08/04/24 16:43 Review of Systems Review of Systems ROS Unobtainable: All systems reviewed & are unremarkable except as noted in HPI and below Patient History Medical History Leukocytoclastic vasculitis Fever Venous (peripheral) insufficiency Myalgia Generalized anxiety disorder Pulsatile tinnitus of left ear Impaired fasting glucose Right shoulder pain Psoriatic arthritis (1996) 2 para 2 Psoriasis (1991) Normal Papanicolaou smear Surgical History Anesthesia Status post delivery (12/27/03) Family History Brother Hypertension Sister Uterine cancer Father Lung cancer Mother No problems noted. Social History details: [place] refugee household members: spouse Smoking Status: Never smoker Smoking Status: Never smoker alcohol intake frequency: holidays/special occasions only Exam Narrative Exam Narrative: GENERAL: Alert and oriented x three, female in mild distress HEENT: Head normocephalic, atraumatic, EOMI, pupils reactive, face symmetric, moist mucous membranes NECK: Supple, full range of motion CARDIOVASCULAR: Regular rate and rhythm without murmurs, rubs or gallops. RESPIRATORY: Breath sounds equal bilaterally, no wheezes rales or rhonchi. ABDOMEN: Soft, positive for epigastric tenderness. Normoactive bowel sounds all 4 quadrants. No guarding or rebound, rigidity, no mass : No CVA tenderness EXTREMITIES: Normal range of motion, no clubbing or edema. Neurovascularly intact NEUROLOGICAL: Cranial nerves II through XII grossly intact. Moving all extremities SKIN: Warm, dry, no petechiae, no rashes or lesions. Initial Vital Signs Initial Vital Signs: Vital Signs Temperature 98.6 F 08/24/24 07:48 Respiratory Rate 20 08/24/24 07:48 Pulse Oximetry 98 08/24/24 07:48 Oxygen Delivery Method Room Air 08/24/24 07:48 Course Orders Ordered: Discontinued Medications Al Hydrox/Mg Hydrox/Simethicone 20 ml/ Lidocaine HCl 15 ml 0 ml PO NOW ONE Stop: 08/24/24 08:50 Last Admin: 08/24/24 09:14 Dose: 35 ml Documented By: BRANDEN Sodium Chloride (Normal Saline 0.9%) 1,000 mls @ 1,000 mls/hr IV BOLUS ONE Stop: 08/24/24 10:22 Last Infusion: 08/24/24 11:19 Dose: Infused Documented By: Admin: 08/24/24 09:25 Dose: 1,000 mls/hr Documented By: BRANDEN Ketorolac Tromethamine (Ketorolac 30 Mg/Ml Vial) 15 mg IV NOW ONE Stop: 08/24/24 08:26 Last Admin: 08/24/24 09:15 Dose: 15 mg Documented By: BRANDEN Ondansetron HCl (Ondansetron 4 Mg/2 Ml Inj) 4 mg IV NOW PRN PRN Reason: Nausea And Vomiting Last Admin: 08/24/24 08:21 Dose: 4 mg Documented By: GEOFFREY Ondansetron HCl (Ondansetron 4 Mg Odt) 4 mg PO NOW PRN PRN Reason: Nausea And Vomiting Vital Signs Vital signs: Vital Signs - 8 hr 08/24/24 10:30 08/24/24 10:30 08/24/24 11:00 Pulse Rate 83 80 Respiratory Rate 16 Blood Pressure 138/69 Pulse Oximetry 99 99 08/24/24 11:00 08/24/24 11:24 08/24/24 11:24 Pulse Rate 84 Respiratory Rate Blood Pressure 139/74 134/76 Pulse Oximetry 99 MDM - Abdominal Pain Lab Data 08/24/24 07:55 08/24/24 07:55 Labs: Lab Results 08/24/24 Range/Units 07:55 WBC 21.4 H (4.5-11.0) X10^3/uL RBC 4.73 (4.0-5.2) X10^6/uL Hgb 13.7 (12.0-16.0) g/dL Hct 41.4 (36-46) % MCV 87.7 (80-100) fL MCH 28.9 (26-34) PG MCHC 33.0 (30-36) % RDW 13.4 (11.6-14.8) % Plt Count 361 (150-400) X10^3/uL Neut % (Auto) 77.7 H (50-75) % Lymph % (Auto) 16.4 L (25-40) % [place] % (Auto) 5.2 (3-14) % Eos % (Auto) 0.2 L (2-4) % Baso % (Auto) 0.5 (0-2) % Neut # (Auto) 20785 H (4264-0206) /uL Lymph # (Auto) 3500 (9977-1147) /uL [place] # (Auto) 1100 H (0-900) /uL Eos # (Auto) 0 (0-450) /uL Baso # (Auto) 100 (0-100) /uL ESR 25 H (0-20) MM/HR Sodium 138 (137-145) mmol/L Potassium 3.5 (3.4-5.1) mmol/L Chloride 102 (98-107) mmol/L Carbon Dioxide 28 (22-32) mmol/L BUN 16 (7-17) mg/dL Creatinine 0.73 (0.52-1.04) mg/dL Estimated GFR > 60 (>60) mL/min BUN/Creatinine Ratio 21.9 (6-22) Glucose 166 H (70-99) mg/dL Calcium 9.1 (8.4-10.2) mg/dL Total Bilirubin 0.6 (0.2-1.3) mg/dL AST 20 (14-36) IU/L ALT 19 (<35) IU/L Alkaline Phosphatase 84 (38-126) U/L C-Reactive Protein 2.6 H (<1.0) mg/dL Total Protein 7.7 (6.3-8.2) g/dL Albumin 4.2 (3.5-5.0) g/dL Globulin 3.5 (1.7-4.1) g/dL Albumin/Globulin Ratio 1.2 (1.0-2.8) Lipase 143 (23-300) U/L ECG Data Attestation: I personally reviewed and interpreted this ECG as follows: Interpretation: Sinus rhythm rate 81 [place] 192 QRS is 70 QTC of 425, no acute ST elevation depression noted. No prior for comparison. MDM Narrative Medical decision making narrative: Labs show white count of 21 hemoglobin of 13.7 platelets are 361, chemistries are appropriate BUN and creatinine normal glucose is 166, bilirubin, AST ALT and alk-phos are normal lipase is 143, ESR is 25 CRP 2.6. Patient notes her last 1 several weeks ago was 2.4 EKG shows sinus rhythm nonspecific change CT abdomen pelvis shows no acute change Patient received fluids, Toradol, GI cocktail, Zofran Discussed findings possibility of ulcer particularly with recent steroid usage, she was had history of vasculitis typically has not had abdominal pain. 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 Reviewed all the findings patient is feeling much better. Patient follows with Dr Lowe, with rheumatology. We will reach out to review recommendations. Spoke with Dr. Swanson, rheumatology at [facility]. Patient reviewed could be potentially for her IgA/[place] Schonlein purpura. They are agreeable to Pepcid and Carafate for the short term to see if this is improvement patient is to follow up. Discharge Plan Departure Patient Disposition: Home Clinical Impression: Epigastric abdominal pain Instructions: DI for Epigastric Pain Activity Restrictions/Additional Instructions: Follow up with your your rheumatology team. Did review your findings from today with them. Prescription for Pepcid 40 mg daily you can increase this to 40 mg twice daily if needed, Carafate was sent to [facility]. There is also a prescription for Zofran included. Please return for fevers, severe pain, persistent vomiting, black or bloody stools, blood in your emesis, new swelling of your extremities, new rash changes, new chest pain or shortness of breath or other new or concerning changes. Prescriptions: New sucralfate [Carafate] 1 gram tablet 1 g PO QACHS Qty: 40 0RF famotidine [Pepcid] 40 mg tablet 40 mg PO BID Qty: 30 0RF ondansetron 4 mg tablet,disintegrating 4 mg PO Q6H PRN (Reason: nausea and vomiting) Qty: 20 0RF No Action Otezla 30 mg tablet 30 mg PO BID losartan 25 mg tablet 25 mg PO DAILY Qty: 90 3RF Referrals: Brad Valdovinos MD [Primary Care Provider, Internal Medicine] Stand Alone Forms: Patient Portal/API
[2024-08-24 08:33] LABS: C-Reactive Protein Quant 2.6 mg/dL (<1.0)
--- NOTE | 2024-08-24 08:49 | DI.CT.S_ITS ---
PROCEDURE: CT ABDOMEN PELVIS W CON INDICATIONS: epigastric pain, hx iga vasculitis, on prednisone, n/v TECHNIQUE: After the administration of intravenous contrast, axial sections acquired from the lung bases to the pubic symphysis. Coronal and sagittal reformats were performed. For radiation dose reduction, the following was used: automated exposure control, adjustment of mA and/or kV according to patient size. COMPARISON: None. FINDINGS: Image quality: Diagnostic. Lower Chest: No significant findings. ABDOMEN: Liver: No solid mass. Hepatic cysts. Gallbladder: No radiopaque gallstones or wall thickening. Biliary ducts: No biliary dilation. Pancreas: No ductal dilation. Spleen: Size is within normal limits. Adrenal Glands: No adrenal nodules. Kidneys and Ureters: No hydronephrosis. No solid mass. No complex renal cystic lesion which requires follow up. Stomach and Bowel: Normal colonic caliber, without significant wall thickening. The appendix is normal. Peritoneum: No abnormal intraperitoneal fluid. No free air. Ventral Wall: No significant ventral hernia. Abdominal Nodes: No retroperitoneal or mesenteric adenopathy by size criteria. Vessels: Aorta and inferior vena cava are normal in size. PELVIS: Pelvic Organs: Uterine fibroids. Bladder: No bladder wall thickening, accounting for underdistention. Pelvic Nodes: No enlarged lymph nodes. Miscellaneous: No inguinal hernias are seen. Bones: No aggressive osseous abnormality. IMPRESSION: No acute disease process. Dictated by: Ashleigh Palmer MD, PhD on 08/24/2024 at 9:33 Approved by: Ashleigh Palmer MD, PhD on 08/24/2024 at 9:39
[2024-08-24 08:56] LABS: Erythrocyte Sedimentation Rate 25 MM/HR (0-20)
[2024-08-24] MEDS: MAG HYDROX/ALUMINUM/SIMETH SUS 20 ML, LIDOCAINE VISCOUS 2% 15 ML PO (09:14)
[2024-08-24] MEDS: KETOROLAC 30 MG/ML VIAL 15 MG IV (09:15)
[2024-08-24] MEDS: SODIUM CHLORIDE 0.9% 1,000 ML 1000 ML IV (09:25)
== END 2024-08-24 11:31 | disposition home or self-care (01) ==
PROVIDERS: Emergency Provider Emergency Medicine; Family Provider Internal Medicine; PCP Internal Medicine
DX: R10.13 Epigastric pain (principal); R11.2 Nausea with vomiting, unspecified; R19.7 Diarrhea, unspecified
CPT/HCPCS: 36415; 74177; 80053; 83690; 85025; 85651; 86140; 93005; 96361; 96374; 96375; 99284; J1885; J2405; Q9967

== ENCOUNTER 2024-09-17 09:27 | Emergency (ER) | payer OTHER, SELFPAY ==
[2024-09-17 09:35] VITALS: BP 178/85; PULSE 86; RESP 16; TEMP 36.5; O2SAT 98; BMI 22.4
--- NOTE | 2024-09-17 09:55 | ED_ITS ---
HPI - Skin/Abscess/Foreign Bdy General Chief complaint: Skin/Abscess/Foreign Body Stated complaint: LT index finger injury Time Seen by Provider: 09/17/24 09:35 History of Present Illness HPI narrative: 59-year-old female history of hypertension, psoriatic arthritis with worsening rash legs and arm with concerns from the bioinformatics research technician that this could be leukocytoclastic vasculitis but most likely idiopathic and will go away on its own recently seen by bioinformatics research technician also with biopsy taken with possible working diagnosis of lupus but waiting for results come back presents today with left index finger swelling increasing redness pain with range of motion despite taking ibuprofen with and increasing her prednisone dose with no significant relief of her symptoms. Other than what is stated 14 point review of system is negative. Related Data Home Medications ?Medication ?Instructions ?Recorded ?Confirmed apremilast 30 mg tablet (Otezla) 30 mg PO BID Psoriati c arthritis 04/28/24 08/04/24 Previous Rx's ?Medication ?Instructions ?Recorded losartan 25 mg tablet 25 mg PO DAILY #90 tabs 04/16 06/07 famotidine 40 mg tablet (Pepcid) 40 mg PO BID #30 tabs 08/24/24 ondansetron 4 mg disintegrating 4 mg PO Q6H PRN nausea and 08/24/24 tablet vomiting #20 tabs sucralfate 1 gram tablet (Carafate) 1 g PO QACHS #40 t abs 08/24/24 metformin 500 mg tablet 500 mg PO BID #180 tabs 06/07 sulfamethoxazole 800 1 tab PO BID #14 tabs mg-trimethoprim 160 mg tablet (Bactrim DS) Allergies Allergy/AdvReac Type Severity Reaction Status Date / Time isoniazid Allergy Severe Hives Verified 09/17/24 09:38 vancomycin Allergy Intermediate Verified 09/17/24 09:38 Review of Systems Review of Systems ROS Unobtainable: All systems reviewed & are unremarkable except as noted in HPI and below Patient History Medical History Leukocytoclastic vasculitis Fever Venous (peripheral) insufficiency Myalgia Generalized anxiety disorder Pulsatile tinnitus of left ear Impaired fasting glucose Right shoulder pain Psoriatic arthritis (1996) 2 para 2 Psoriasis (1991) Normal Papanicolaou smear Surgical History Anesthesia Status post delivery (12/27/03) Family History Brother Hypertension Sister Uterine cancer Father Lung cancer Mother No problems noted. Social History details: [place] refugee household members: spouse alcohol intake frequency: holidays/special occasions only Exam Narrative Exam Narrative: GENERAL: [59] year old patient appears stated age. Well-developed patient, in mild distress. HEAD: Atraumatic. Normocephalic. EYES: Pupils equal round and reactive. Extraocular motions intact. No scleral icterus. No injection or drainage. EXTREMITIES: No edema or joint tenderness. L index finger PIP swelling with dec ROM in flexion and extension with multiple erythematous hemorrhagic looking macules noted on the dorsal areas of hand BACK: Nontender without deformity or crepitance. No flank tenderness. NEURO: AOx3. SKIN: No rash or erythema of visible areas Initial Vital Signs Initial Vital Signs: Vital Signs Temperature 97.7 F 09/17/24 09:35 Pulse Rate 86 09/17/24 09:35 Respiratory Rate 16 09/17/24 09:35 Blood Pressure 178/85 H 09/17/24 09:35 Pulse Oximetry 98 09/17/24 09:35 Oxygen Delivery Method Room Air 09/17/24 09:35 Course Orders Ordered: ED Orders 09/17/24 09:54 CT UE LT w con Stat 09/17/24 10:14 CBC Auto Diff [Complete Blood Count AUTO DIFF] Stat CMP [Comprehensive Metabolic Panel] Stat CRP [C-Reactive Protein Quant] Stat Erythrocyte Sedimentation Rate Stat Vital Signs Vital signs: Vital Signs - 8 hr 09/17/24 09:35 09/17/24 11:23 Temperature 97.7 F Pulse Rate 86 85 Respiratory Rate 16 18 Blood Pressure 178/85 H 142/78 H Pulse Oximetry 98 97 Oxygen Delivery Method Room Air MDM - Skin/Abscess/Foreign Bdy Lab Data 09/17/24 10:14 09/17/24 10:14 Labs: Lab Results 09/17/24 Range/Units 10:14 WBC 12.6 H (4.5-11.0) X10^3/uL RBC 4.47 (4.0-5.2) X10^6/uL Hgb 13.1 (12.0-16.0) g/dL Hct 39.3 (36-46) % MCV 87.9 (80-100) fL MCH 29.2 (26-34) PG MCHC 33.2 (30-36) % RDW 13.5 (11.6-14.8) % Plt Count 487 H (150-400) X10^3/uL Neut % (Auto) 62.2 (50-75) % Lymph % (Auto) 33.8 (25-40) % [place] % (Auto) 2.9 L (3-14) % Eos % (Auto) 0.4 L (2-4) % Baso % (Auto) 0.7 (0-2) % Neut # (Auto) 7800 H (8490-1454) /uL Lymph # (Auto) 4300 (4773-6279) /uL [place] # (Auto) 400 (0-900) /uL Eos # (Auto) 100 (0-450) /uL Baso # (Auto) 100 (0-100) /uL ESR 52 H (0-20) MM/HR Sodium 139 (137-145) mmol/L Potassium 3.6 (3.4-5.1) mmol/L Chloride 102 (98-107) mmol/L Carbon Dioxide 29 (22-32) mmol/L BUN 19 H (7-17) mg/dL Creatinine 0.70 (0.52-1.04) mg/dL Estimated GFR > 60 (>60) mL/min BUN/Creatinine Ratio 27.1 H (6-22) Glucose 170 H (70-99) mg/dL Calcium 9.8 (8.4-10.2) mg/dL Total Bilirubin 0.4 (0.2-1.3) mg/dL AST 26 (14-36) IU/L ALT 27 (<35) IU/L Alkaline Phosphatase 74 (38-126) U/L C-Reactive Protein 3.2 H (<1.0) mg/dL Total Protein 8.3 H (6.3-8.2) g/dL Albumin 4.4 (3.5-5.0) g/dL Globulin 3.9 (1.7-4.1) g/dL Albumin/Globulin Ratio 1.1 (1.0-2.8) Imaging Data Extremity x-ray #1: Radiologist's Impression: [address] [address] [address] Scan Report Signed Patient: Marguerite Perales MR#: [id number] : 1965 Acct:[id number] Age/Sex: 59 / F Date of Service: 09/17/24 Loc: ED Accession Number: [id number] Procedure: CT UE LT w con Ordering Provider: Jak Mcdermott D.O. PROCEDURE: CT UE LT W CON INDICATIONS: L index finger abscess / osteomyelitis? TECHNIQUE: After the administration of intravenous contrast, 3 mm axial sections acquired of the hand , with coronal and sagittal reformats. COMPARISON: None. FINDINGS: Image quality: Diagnostic Bones: Mild scattered arthrosis. No definite osseous erosions. No acute displaced fracture or dislocation. Soft tissues: Soft tissue edema is seen at the 2nd digit, without a drainable fluid collection. IMPRESSION: Suspected soft tissue edema, without drainable rim enhancing collection or osseous erosion. MRI is more sensitive if clinically necessary. Dictated by: Patric Cardona M.D. on 09/17/2024 at 9:48 Approved by: Patric Cardona M.D. on 09/17/2024 at 9:51 MDM Narrative Medical decision making narrative: Vital signs nurse triage note medication list previous ER visits and all imaging studies reviewed. Suspected soft tissue edema without drainable rim enhancing collection or osseous erosion. There is only mild edema around the 2nd digit flexor tendon without large tenosynovitis no definite hematoma. Differential diagnosis includes cellulitis flexor tenosynovitis osteomyelitis MRSA abscess. DC home on Bactrim rx. Discharge Plan Departure Patient Disposition: Home Clinical Impression: Cellulitis of finger Qualifiers: Laterality: left Qualified Code(s): L03.012 - Cellulitis of left finger Instructions: DI for Cellulitis -- Adult Activity Restrictions/Additional Instructions: Return with new or worsening symptoms. Take your medicines as directed. Follow up with PCP and/or specialist at your next scheduled appointment. Prescriptions: New sulfamethoxazole-trimethoprim [Bactrim DS] 800-160 mg tablet 1 tab PO BID Qty: 14 0RF No Action metformin 500 mg tablet 500 mg PO BID Qty: 180 3RF Otezla 30 mg tablet 30 mg PO BID losartan 25 mg tablet 25 mg PO DAILY Qty: 90 3RF sucralfate [Carafate] 1 gram tablet 1 g PO QACHS Qty: 40 0RF famotidine [Pepcid] 40 mg tablet 40 mg PO BID Qty: 30 0RF ondansetron 4 mg tablet,disintegrating 4 mg PO Q6H PRN (Reason: nausea and vomiting) Qty: 20 0RF Referrals: Brad Valdovinos MD [Primary Care Provider, Internal Medicine] Stand Alone Forms: Patient Portal/API
[2024-09-17 10:30] LABS: Add Manual Diff / Slide Review NO; Hematocrit 39.3 % (36-46); Hemoglobin 13.1 g/dL (12.0-16.0); Lymphocytes Absolute Auto 4300 /uL (1100-4500); Mean Corpuscular HGB Conc 33.2 % (30-36); Mean Corpuscular Hemoglobin 29.2 PG (26-34); Mean Corpuscular Volume 87.9 fL (80-100); Platelet Count 487 X10^3/uL (150-400)
[2024-09-17 10:49] LABS: Alanine Aminotransferase 27 IU/L (<35); Albumin 4.4 g/dL (3.5-5.0); Albumin Globulin Ratio 1.1 (1.0-2.8); Alkaline Phosphatase 74 U/L (38-126); Blood Urea Nitrogen 19 mg/dL (7-17); Calcium 9.8 mg/dL (8.4-10.2); Carbon Dioxide 29 mmol/L (22-32); Chloride 102 mmol/L (98-107); Estimated Glomerular Filt Rate > 60 mL/min (>60); Globulin 3.9 g/dL (1.7-4.1); Glucose 170 mg/dL (70-99); HEMOLYSIS < 15 (0-50); Potassium 3.6 mmol/L (3.4-5.1); Sodium 139 mmol/L (137-145); Total Protein 8.3 g/dL (6.3-8.2)
[2024-09-17 11:23] VITALS: BP 142/78; PULSE 85; RESP 18; O2SAT 97
[2024-09-17 12:56] VITALS: BP 156/88; PULSE 71; RESP 16; O2SAT 99
== END 2024-09-17 13:05 | disposition home or self-care (01) ==
PROVIDERS: Emergency Provider Family Medicine; Family Provider Internal Medicine; PCP Internal Medicine; Referring Provider Internal Medicine
DX: L03.012 Cellulitis of left finger (principal)
CPT/HCPCS: 36415; 73201; 80053; 85025; 85651; 86140; 99283; 99284; Q9967

== ENCOUNTER → 2024-09-28 14:29 | Outpatient (CLI) | payer OTHER, SELFPAY ==
[2024-09-28 15:03] LABS: Hematocrit 41.1 % (36-46); Hemoglobin 13.8 g/dL (12.0-16.0); Mean Corpuscular HGB Conc 33.6 % (30-36); Mean Corpuscular Hemoglobin 29.5 PG (26-34); Mean Corpuscular Volume 87.9 fL (80-100); Platelet Count 370 X10^3/uL (150-400)
[2024-09-28 15:13] LABS: Hemoglobin A1C% w Est Avg Glu 6.2 % (4.0-6.0)
[2024-09-28 15:28] LABS: Alanine Aminotransferase 86 IU/L (<35); Albumin 4.1 g/dL (3.5-5.0); Albumin Globulin Ratio 1.4 (1.0-2.8); Alkaline Phosphatase 66 U/L (38-126); Blood Urea Nitrogen 26 mg/dL (7-17); Calcium 9.6 mg/dL (8.4-10.2); Carbon Dioxide 29 mmol/L (22-32); Chloride 99 mmol/L (98-107); Estimated Glomerular Filt Rate > 60 mL/min (>60); Globulin 3.0 g/dL (1.7-4.1); Glucose 255 mg/dL (70-99); HEMOLYSIS < 15 (0-50); Potassium 5.1 mmol/L (3.4-5.1); Sodium 137 mmol/L (137-145); Total Protein 7.1 g/dL (6.3-8.2)
[2024-09-28 15:41] LABS: Vitamin D 25 Hydroxy (D3) 37.8 ng/mL (30.0-100.0)
[2024-09-28 15:56] LABS: TSH w/ Reflex to FT4 0.78 uIU/mL (0.47-4.68)
[2024-09-28 16:12] LABS: Vitamin B12 Reflex MMA if <400 702 pg/mL (239-931)
[2024-10-03 15:10] LABS: Albumin 3.6 g/dL (2.9-4.4); Alpha-1-Globulin 0.3 g/dL (0.0-0.4); Alpha-2-Globulin 1.0 g/dL (0.4-1.0); Gamma Globulin 1.2 g/dL (0.4-1.8)
== END ==
PROVIDERS: Family Provider Internal Medicine; PCP Internal Medicine; Referring Provider Internal Medicine; Visit Provider Internal Medicine
DX: D69.0 Allergic purpura (principal); R73.01 Impaired fasting glucose; E56.9 Vitamin deficiency, unspecified
CPT/HCPCS: 36415; 80053; 82306; 82607; 83036; 84155; 84165; 84443; 85027; 85651; 86140

== ENCOUNTER → 2024-12-28 15:56 | Outpatient (CLI) | payer OTHER, SELFPAY ==
[2024-12-28 16:38] LABS: Add Manual Diff / Slide Review NO; Hematocrit 37.0 % (36-46); Hemoglobin 12.6 g/dL (12.0-16.0); Lymphocytes Absolute Auto 2100 /uL (1100-4500); Mean Corpuscular HGB Conc 34.2 % (30-36); Mean Corpuscular Hemoglobin 31.7 PG (26-34); Mean Corpuscular Volume 92.9 fL (80-100); Platelet Count 391 X10^3/uL (150-400)
[2024-12-28 16:47] LABS: Hemoglobin A1C% w Est Avg Glu 5.3 % (4.0-6.0)
[2024-12-28 17:29] LABS: Alanine Aminotransferase 20 IU/L (<35); Albumin 4.4 g/dL (3.5-5.0); Albumin Globulin Ratio 1.6 (1.0-2.8); Alkaline Phosphatase 61 U/L (38-126); Blood Urea Nitrogen 14 mg/dL (7-17); Calcium 10.0 mg/dL (8.4-10.2); Carbon Dioxide 31 mmol/L (22-32); Chloride 100 mmol/L (98-107); Estimated Glomerular Filt Rate > 60 mL/min (>60); Globulin 2.7 g/dL (1.7-4.1); Glucose 128 mg/dL (70-99); HEMOLYSIS < 15 (0-50); Potassium 4.2 mmol/L (3.4-5.1); Sodium 141 mmol/L (137-145); Total Protein 7.1 g/dL (6.3-8.2)
== END ==
PROVIDERS: Family Provider Internal Medicine; PCP Internal Medicine; Referring Provider Internal Medicine Rheumatology; Visit Provider Internal Medicine Rheumatology
DX: D69.0 Allergic purpura (principal); D84.9 Immunodeficiency, unspecified; L40.50 Arthropathic psoriasis, unspecified
CPT/HCPCS: 36415; 80053; 82784; 83036; 85025; 85651; 86140

== ENCOUNTER → 2025-01-05 12:20 | Outpatient (CLI) | payer OTHER, SELFPAY ==
--- NOTE | 2025-01-05 12:21 | DI.RAD.S_ITS ---
PROCEDURE: XR DEXA AXIAL SKELETON INDICATIONS: PSORIATIC ARTHRITIS COMPARISON: None. FINDINGS: Lumbar Spine: Bone mineral density 0.990 g/cm2, T score -0.5. Left Femoral Neck: Bone mineral density 0.743 g/cm2, T score -1.0. Left Hip: Bone mineral density 0.892 g/cm2, T score -0.4. (T score greater or equal to -1.0 to: NORMAL) (T score from -1.1 to -2.4: OSTEOPENIA) (T score less than or equal to -2.5: OSTEOPOROSIS) IMPRESSION: Normal bone mineral density by WHO classification. Follow-up guidelines as follows: Osteoporosis: Consider a repeat DEXA and Vertebral Fracture Assessment (VFA) exam in 2 years or sooner if medically necessary, to reassess this patient's status. Osteopenia: Consider a repeat DEXA in 2-3 years to reassess this patient's status, or if there is a new clinical indication. Normal: Consider a repeat DEXA in 5 years or sooner, or if there is a new clinical indication. All treatment decisions require clinical judgment and consideration of individual patient factors, including patient preferences, comorbidities, previous drug use, risk factors not captured in the FRAX model (e.g., frailty, falls, vitamin D deficiency, increased bone turnover, interval significant decline in bone density ) and possible under- or over-estimation of fracture risk by FRAX. In addition, the NOF Guide recommends that FDA-approved medical therapies be considered in postmenopausal women and men age >= 50 years with a: * Hip or vertebral (clinical or morphometric) fracture * T-score of <=-2.5 at the spine or hip * Ten-year fracture probability by FRAX of >= 3% for hip fracture or >=20% for major osteoporotic fracture. Dictated by: Santiago Galarza M.D. on 01/05/2025 at 14:30 Approved by: Santiago aGlarza M.D. on 01/05/2025 at 14:30
== END ==
LOC: RAD 12:20
PROVIDERS: Family Provider Internal Medicine; PCP Internal Medicine; Referring Provider Internal Medicine; Visit Provider Internal Medicine Rheumatology
DX: D69.0 Allergic purpura (principal); L40.50 Arthropathic psoriasis, unspecified; D84.9 Immunodeficiency, unspecified
CPT/HCPCS: 77080

== ENCOUNTER → 2025-02-17 13:45 | Outpatient (CLI) | payer OTHER, SELFPAY ==
[2025-02-17 15:27] LABS: Add Manual Diff / Slide Review NO; Hematocrit 40.9 % (36-46); Hemoglobin 13.5 g/dL (12.0-16.0); Lymphocytes Absolute Auto 1400 /uL (1100-4500); Mean Corpuscular HGB Conc 33.1 % (30-36); Mean Corpuscular Hemoglobin 29.6 PG (26-34); Mean Corpuscular Volume 89.3 fL (80-100); Platelet Count 398 X10^3/uL (150-400)
[2025-02-17 16:00] LABS: Alanine Aminotransferase 31 IU/L (<35); Albumin 4.6 g/dL (3.5-5.0); Albumin Globulin Ratio 1.6 (1.0-2.8); Alkaline Phosphatase 69 U/L (38-126); Blood Urea Nitrogen 16 mg/dL (7-17); Calcium 9.8 mg/dL (8.4-10.2); Carbon Dioxide 30 mmol/L (22-32); Chloride 102 mmol/L (98-107); Estimated Glomerular Filt Rate > 60 mL/min (>60); Globulin 2.9 g/dL (1.7-4.1); Glucose 121 mg/dL (70-99); HEMOLYSIS < 15 (0-50); Potassium 4.2 mmol/L (3.4-5.1); Sodium 142 mmol/L (137-145); Total Protein 7.5 g/dL (6.3-8.2)
[2025-02-18 07:40] LABS: IGA 371 mg/dL (87-352); IGG 973 mg/dL (586-1602); IGM 57 mg/dL (26-217)
== END ==
PROVIDERS: Family Provider Internal Medicine; PCP Internal Medicine; Referring Provider Internal Medicine Rheumatology; Visit Provider Internal Medicine Rheumatology
DX: D69.0 Allergic purpura (principal); D84.9 Immunodeficiency, unspecified; L40.50 Arthropathic psoriasis, unspecified
CPT/HCPCS: 36415; 80053; 82784; 85025; 85651; 86140